=== PATIENT | male | born 1965 | race Two or more races ===

== ENCOUNTER 2017-01-05 19:30 | Observation (INO) | payer SELFPAY ==
[2017-01-05] MEDS ORDERED: Insulin Regular, Human 100 Units/ML 3 ML Vial SUBCUT STA (21:39)
[2017-01-05] MEDS ORDERED: Sodium Chloride 0.9% 1,000 ML IV ONE ×2 (21:39→23:32)
--- NOTE | 2017-01-05 22:24 | EDM.PDOC ---
ED HPI GENERAL MEDICAL PROBLEM - General Chief Complaint: Diabetic Complaint Stated Complaint: HIGH BLOOD SUGAR Time Seen by Provider: 01/05/17 20:48 Source of Information: Reports: Patient, RN Notes Reviewed History Limitations: Reports: No Limitations - History of Present Illness INITIAL COMMENTS - FREE TEXT/NARRATIVE: The patient states that he has had an unintentional 36 pound weight loss over the past 3 weeks. He states that he is working out and drinking protein shakes, but this weight loss is excessive. He reports having both polydipsia and polyuria. No dysuria. He states that he was diagnosed with diabetes in 2010, started on insulin, but worked out aggressively, and was off insulin within 3 weeks. He was kept on metformin until late 2014. He has not checked his blood sugars regularly since then, but states that with the weight loss, polydipsia, and polyuria, he purchased a blood glucose monitor about 2 weeks ago. He states that his blood sugar was about 334 yesterday morning, and about 534 this evening. The patient does not have a PCP. - Related Data Allergies Allergy/AdvReac Type Severity Reaction Status Date / Time Penicillins Allergy Airway Verified 01/05/17 19:49 Tightness Home Meds: Home Meds . [No Known Home Meds] 01/05/17 [History] Past Medical History Genitourinary History: Reports: Renal Calculus Endocrine/Metabolic History: Reports: Diabetes, Type II, Obesity/BMI 30+ - Past Surgical History HEENT Surgical History: Reports: Oral Surgery (2 wisdom teeth extracted) GI Surgical History: Reports: Hernia, Inguinal (left) Musculoskeletal Surgical History: Reports: Arthroscopic Knee (right), Shoulder Surgery (left biceps tendon repair) Social & Family History - Tobacco Use Smoking Status *Q: Never Smoker - Alcohol Use Alcohol Use History: No - Recreational Drug Use Recreational Drug Use: No - Living Situation & Occupation Living situation: Reports: (), Alone Occupation: Employed (Faculty Head/company tanker truck driver) ED ROS GENERAL - Review of Systems Review Of Systems: See Below Constitutional: Reports: No Symptoms HEENT: Reports: No Symptoms Respiratory: Reports: No Symptoms Cardiovascular: Reports: No Symptoms Endocrine: Reports: No Symptoms GI/Abdominal: Reports: No Symptoms : Reports: No Symptoms Musculoskeletal: Reports: No Symptoms Skin: Reports: No Symptoms Neurological: Reports: No Symptoms Psychiatric: Reports: No Symptoms Hematologic/Lymphatic: Reports: No Symptoms Immunologic: Reports: No Symptoms ED EXAM GENERAL NO PERIP PULSE - Physical Exam Exam: See Below Exam Limited By: No Limitations General Appearance: Alert, WD/WN, No Apparent Distress Eye Exam: Bilateral Eye: Normal Inspection Ears: Normal External Exam, Hearing Grossly Normal Nose: Normal Inspection, No Blood Throat/Mouth: Normal Inspection, Normal Lips, Normal Oropharynx, Normal Voice, No Airway Compromise Head: Atraumatic, Normocephalic Neck: Normal Inspection, Full Range of Motion Respiratory/Chest: No Respiratory Distress, Lungs Clear, Normal Breath Sounds, No Accessory Muscle Use Cardiovascular: Normal Peripheral Pulses, Regular Rate, Rhythm, No Gallop, No JVD, No Murmur, No Rub GI/Abdominal: Normal Bowel Sounds, Soft, Non-Tender, No Organomegaly, No Distention, No Abnormal Bruit, No Mass, Other (Obese) (Male) Exam: Deferred Rectal (Males) Exam: Deferred Back Exam: Normal Inspection, Full Range of Motion, NT Extremities: Normal Inspection, Normal Range of Motion, No Pedal Edema, Normal Capillary Refill Neurological: Alert, Oriented, Normal Cognition, No Motor/Sensory Deficits Psychiatric: Normal Affect Skin Exam: Warm, Dry, Intact, Normal Color, No Rash Course - Vital Signs Last Recorded V/S: Last Vital Signs Temp 35.8 C 01/05/17 19:47 Pulse 64 01/05/17 19:47 Resp BP 144/97 H 01/05/17 19:47 Pulse Ox 98 01/05/17 19:47 Orthostatic Blood Pressure [ 132/86 Standing] Orthostatic Blood Pressure [ 140/86 Sitting] Orthostatic Blood Pressure [ 129/81 Supine] - Orders/Labs/Meds Orders: Medication Orders Acetaminophen (Tylenol) 650 mg PO Q4H PRN PRN Reason: Pain (Mild 1-3)/fever Hydrocodone Bitart/Acetaminophen ([place] 325-5 Mg) 1 tab PO Q4H PRN PRN Reason: Pain (moderate 4-6) Albuterol/Ipratropium (Duoneb 3.0-0.5 Mg/3 Ml) 3 ml NEB Q4H PRN PRN Reason: Shortness Of Breath/wheezing Aspirin (Halfprin) 81 mg PO DAILY DARINEL Bisacodyl (Dulcolax) 5 mg PO DAILY PRN PRN Reason: Constipation Dextrose/Water (Dextrose 50% In Water) 50 ml IVPUSH ASDIRECTED PRN PRN Reason: Hypoglycemia Docusate Sodium (Colace) 100 mg PO BID PRN PRN Reason: Constipation Glipizide (Glucotrol Xl) 2.5 mg PO BIDMEALS [facility] Hydralazine HCl (Apresoline) 20 mg IVPUSH Q4H PRN PRN Reason: Hypertension Hydromorphone HCl (Dilaudid) 0.25 mg IVPUSH Q2H PRN PRN Reason: Pain (severe 7-10) Promethazine HCl 12.5 mg/ (Sodium Chloride) 50.5 mls @ 100 mls/hr IV Q6H PRN PRN Reason: Nausea/Vomiting Sodium Chloride (Normal Saline) 1,000 mls @ 125 mls/hr IV ASDIRECTED [facility] Last Admin: 01/06/17 02:04 Dose: 125 mls/hr Insulin Aspart (Novolog) 0 unit SUBCUT QIDACANDBED [facility] PRN Reason: Protocol Last Admin: 01/06/17 02:13 Dose: 6 units Lorazepam (Ativan) 2 mg IVPUSH Q4H PRN PRN Reason: Seizures Lorazepam (Ativan) 1 mg IV Q6H PRN PRN Reason: Anxiety Magnesium Sulfate (Pharmacy To Dose - Magnesium Replacement) 0 dose .XX ASDIRECTED PRN PRN Reason: RX TO WATCH MAG LEVELS Metformin HCl (Glucophage) 500 mg PO BIDMEALS [facility] Metoprolol Tartrate (Lopressor) 5 mg IVPUSH Q4H PRN PRN Reason: Tachycardia Ondansetron HCl (Zofran) 4 mg IV Q6H PRN PRN Reason: Nausea/Vomiting Polyethylene Glycol (Miralax) 17 gm PO DAILY PRN PRN Reason: Constipation Potassium Chloride (Pharmacy To Dose - Potassium Replacement) 0 dose .XX ASDIRECTED PRN PRN Reason: RX TO WATCH K LEVELS Senna/Docusate Sodium (Senna Plus) 1 tab PO BID PRN PRN Reason: Constipation Temazepam (Restoril) 15 mg PO BEDTIME PRN PRN Reason: Sleep Last Admin: 01/06/17 02:03 Dose: 15 mg Labs: Laboratory Tests 01/05/17 01/05/17 01/05/17 Range/Units 20:15 20:15 20:40 WBC 5.63 (4.23-9.07) K/mm3 RBC 4.84 (4.63-6.08) M/mm3 Hgb 14.0 (13.7-17.5) gm/L Hct 40.4 (40.1-51.0) % MCV 83.5 (79.0-92.2) fl MCH 28.9 (25.7-32.2) pg MCHC 34.7 (32.2-35.5) g/dl RDW Std Deviation 37.0 (35.1-43.9) fL Plt Count 163 (163-337) K/mm3 MPV 9.9 (9.4-12.3) fl Neut % (Auto) 52.0 (34.0-67.9) % Lymph % (Auto) 35.7 (21.8-53.1) % [place] % (Auto) 9.2 (5.3-12.2) % Eos % (Auto) 2.7 (0.8-7.0) Baso % (Auto) 0.4 (0.1-1.2) % Neut # (Auto) 2.93 (1.78-5.38) K/mm3 Lymph # (Auto) 2.01 (1.32-3.57) K/mm3 [place] # (Auto) 0.52 (0.30-0.82) K/mm3 Eos # (Auto) 0.15 (0.04-0.54) K/mm3 Baso # (Auto) 0.02 (0.01-0.08) K/mm3 Neutrophils % (Manual) (40-60) % Band Neutrophils % (0-10) % Lymphocytes % (Manual) (20-40) % Atypical Lymphs % % Monocytes % (Manual) (2-10) % Eosinophils % (Manual) (0.8-7.0) % Basophils % (Manual) (0.2-1.2) Platelet Estimate RBC Morph Comment Sodium 131 L (136-145) mEq/L Potassium 4.6 (3.5-5.1) mEq/L Chloride 97 L (98-107) mEq/L Carbon Dioxide 25 (21-32) mEq/L Anion Gap 13.6 (5-15) BUN 31 H (7-18) mg/dL Creatinine 1.4 H (0.7-1.3) mg/dL Est Cr Clr Drug Dosing 65.18 mL/min Estimated GFR (MDRD) 54 (>60) mL/min BUN/Creatinine Ratio 22.1 H (14-18) Glucose 592 H* (74-106) mg/dL Lactic Acid (0.4-2.0) mmol/L Calcium 8.9 (8.5-10.1) mg/dL Magnesium (1.8-2.4) mg/dl Total Bilirubin 0.5 (0.2-1.0) mg/dL AST 16 (15-37) U/L ALT 36 (16-63) U/L Alkaline Phosphatase 97 (46-116) U/L Troponin I (0.00-0.056) ng/mL Total Protein 7.1 (6.4-8.2) g/dl Albumin 3.4 (3.4-5.0) g/dl Globulin 3.7 gm/dL Albumin/Globulin Ratio 0.9 L (1-2) Urine Color Light yellow (Yellow) Urine Appearance Clear (Clear) Urine pH 6.0 (5.0-8.0) Ur Specific [place] 1.015 (1.005-1.030) Urine Protein Negative (Negative) Urine Glucose (UA) 2+ H (Negative) Urine Ketones Negative (Negative) Urine Occult Blood 1+ H (Negative) Urine Nitrite Negative (Negative) Urine Bilirubin Negative (Negative) Urine Urobilinogen 0.2 (0.2-1.0) Ur Leukocyte Esterase Negative (Negative) Urine RBC 0-5 (0-5) /hpf Urine WBC Not seen (0-5) /hpf Ur Epithelial Cells 0-5 (0-5) /hpf Urine Bacteria Not seen (FEW) /hpf Urine Mucus Not seen (FEW) /hpf Ketones (0.0-0.3) mM 01/05/17 01/05/17 01/05/17 Range/Units 22:05 22:05 22:05 WBC 6.21 (4.23-9.07) K/mm3 RBC 4.86 (4.63-6.08) M/mm3 Hgb 14.2 (13.7-17.5) gm/L Hct 40.4 (40.1-51.0) % MCV 83.1 (79.0-92.2) fl MCH 29.2 (25.7-32.2) pg MCHC 35.1 (32.2-35.5) g/dl RDW Std Deviation 36.7 (35.1-43.9) fL Plt Count 162 L (163-337) K/mm3 MPV 9.9 (9.4-12.3) fl Neut % (Auto) (34.0-67.9) % Lymph % (Auto) (21.8-53.1) % [place] % (Auto) (5.3-12.2) % Eos % (Auto) (0.8-7.0) Baso % (Auto) (0.1-1.2) % Neut # (Auto) (1.78-5.38) K/mm3 Lymph # (Auto) (1.32-3.57) K/mm3 [place] # (Auto) (0.30-0.82) K/mm3 Eos # (Auto) (0.04-0.54) K/mm3 Baso # (Auto) (0.01-0.08) K/mm3 Neutrophils % (Manual) 55 (40-60) % Band Neutrophils % 0 (0-10) % Lymphocytes % (Manual) 35 (20-40) % Atypical Lymphs % 0 % Monocytes % (Manual) 9 (2-10) % Eosinophils % (Manual) 1 (0.8-7.0) % Basophils % (Manual) 0 L (0.2-1.2) Platelet Estimate Adequate RBC Morph Comment Normal Sodium (136-145) mEq/L Potassium (3.5-5.1) mEq/L Chloride (98-107) mEq/L Carbon Dioxide (21-32) mEq/L Anion Gap (5-15) BUN (7-18) mg/dL Creatinine (0.7-1.3) mg/dL Est Cr Clr Drug Dosing mL/min Estimated GFR (MDRD) (>60) mL/min BUN/Creatinine Ratio (14-18) Glucose (74-106) mg/dL Lactic Acid 1.9 (0.4-2.0) mmol/L Calcium (8.5-10.1) mg/dL Magnesium 1.7 L (1.8-2.4) mg/dl Total Bilirubin (0.2-1.0) mg/dL AST (15-37) U/L ALT (16-63) U/L Alkaline Phosphatase (46-116) U/L Troponin I < 0.017 (0.00-0.056) ng/mL Total Protein (6.4-8.2) g/dl Albumin (3.4-5.0) g/dl Globulin gm/dL Albumin/Globulin Ratio (1-2) Urine Color (Yellow) Urine Appearance (Clear) Urine pH (5.0-8.0) Ur Specific [place] (1.005-1.030) Urine Protein (Negative) Urine Glucose (UA) (Negative) Urine Ketones (Negative) Urine Occult Blood (Negative) Urine Nitrite (Negative) Urine Bilirubin (Negative) Urine Urobilinogen (0.2-1.0) Ur Leukocyte Esterase (Negative) Urine RBC (0-5) /hpf Urine WBC (0-5) /hpf Ur Epithelial Cells (0-5) /hpf Urine Bacteria (FEW) /hpf Urine Mucus (FEW) /hpf Ketones (0.0-0.3) mM 01/05/17 Range/Units 22:05 WBC (4.23-9.07) K/mm3 RBC (4.63-6.08) M/mm3 Hgb (13.7-17.5) gm/L Hct (40.1-51.0) % MCV (79.0-92.2) fl MCH (25.7-32.2) pg MCHC (32.2-35.5) g/dl RDW Std Deviation (35.1-43.9) fL Plt Count (163-337) K/mm3 MPV (9.4-12.3) fl Neut % (Auto) (34.0-67.9) % Lymph % (Auto) (21.8-53.1) % [place] % (Auto) (5.3-12.2) % Eos % (Auto) (0.8-7.0) Baso % (Auto) (0.1-1.2) % Neut # (Auto) (1.78-5.38) K/mm3 Lymph # (Auto) (1.32-3.57) K/mm3 [place] # (Auto) (0.30-0.82) K/mm3 Eos # (Auto) (0.04-0.54) K/mm3 Baso # (Auto) (0.01-0.08) K/mm3 Neutrophils % (Manual) (40-60) % Band Neutrophils % (0-10) % Lymphocytes % (Manual) (20-40) % Atypical Lymphs % % Monocytes % (Manual) (2-10) % Eosinophils % (Manual) (0.8-7.0) % Basophils % (Manual) (0.2-1.2) Platelet Estimate RBC Morph Comment Sodium (136-145) mEq/L Potassium (3.5-5.1) mEq/L Chloride (98-107) mEq/L Carbon Dioxide (21-32) mEq/L Anion Gap (5-15) BUN (7-18) mg/dL Creatinine (0.7-1.3) mg/dL Est Cr Clr Drug Dosing mL/min Estimated GFR (MDRD) (>60) mL/min BUN/Creatinine Ratio (14-18) Glucose (74-106) mg/dL Lactic Acid (0.4-2.0) mmol/L Calcium (8.5-10.1) mg/dL Magnesium (1.8-2.4) mg/dl Total Bilirubin (0.2-1.0) mg/dL AST (15-37) U/L ALT (16-63) U/L Alkaline Phosphatase (46-116) U/L Troponin I (0.00-0.056) ng/mL Total Protein (6.4-8.2) g/dl Albumin (3.4-5.0) g/dl Globulin gm/dL Albumin/Globulin Ratio (1-2) Urine Color (Yellow) Urine Appearance (Clear) Urine pH (5.0-8.0) Ur Specific [place] (1.005-1.030) Urine Protein (Negative) Urine Glucose (UA) (Negative) Urine Ketones (Negative) Urine Occult Blood (Negative) Urine Nitrite (Negative) Urine Bilirubin (Negative) Urine Urobilinogen (0.2-1.0) Ur Leukocyte Esterase (Negative) Urine RBC (0-5) /hpf Urine WBC (0-5) /hpf Ur Epithelial Cells (0-5) /hpf Urine Bacteria (FEW) /hpf Urine Mucus (FEW) /hpf Ketones 0.18 (0.0-0.3) mM Meds: Medications Generic Name Dose Route Start Last Admin Trade Name Freq PRN Reason Stop Dose Admin Acetaminophen 650 mg 01/06/17 01:29 Tylenol PO Q4H PRN Pain (Mild 1-3)/fever Hydrocodone Bitart/Acetaminophen 1 tab 01/06/17 01:29 [place]yer 325-5 Mg PO Q4H PRN Pain (moderate 4-6) Albuterol/Ipratropium 3 ml 01/06/17 01:29 Duoneb 3.0-0.5 Mg/3 Ml NEB Q4H PRN Shortness Of Breath/wheezing Aspirin 81 mg 01/06/17 09:00 Halfprin PO DAILY DARINEL Bisacodyl 5 mg 01/06/17 01:29 Dulcolax PO DAILY PRN Constipation Dextrose/Water 50 ml 01/06/17 01:35 Dextrose 50% In Water IVPUSH ASDIRECTED PRN Hypoglycemia Docusate Sodium 100 mg 01/06/17 01:29 Colace PO BID PRN Constipation Glipizide 2.5 mg 01/06/17 07:00 Glucotrol Xl PO BIDMEALS [facility] Hydralazine HCl 20 mg 01/06/17 01:28 Apresoline IVPUSH Q4H PRN Hypertension Hydromorphone HCl 0.25 mg 01/06/17 01:29 Dilaudid IVPUSH Q2H PRN Pain (severe 7-10) Promethazine HCl 12.5 mg/ 50.5 mls @ 100 mls/hr 01/06/17 01:29 Sodium Chloride IV Q6H PRN Nausea/Vomiting Sodium Chloride 1,000 mls @ 125 mls/hr 01/06/17 01:30 01/06/17 02:04 Normal Saline IV 125 mls/hr ASDIRECTED [facility] Administration Insulin Aspart 0 unit 01/06/17 01:45 01/06/17 02:13 Novolog SUBCUT 6 units QIDACANDBED [facility] Administration Protocol Lorazepam 2 mg 01/06/17 01:28 Ativan IVPUSH Q4H PRN Seizures Lorazepam 1 mg 01/06/17 01:29 Ativan IV Q6H PRN Anxiety Magnesium Sulfate 0 dose 01/06/17 01:45 Pharmacy To Dose - Magnesium Replacement .XX ASDIRECTED PRN RX TO WATCH MAG LEVELS Metformin HCl 500 mg 01/06/17 07:00 Glucophage PO BIDMEALS DARINEL Metoprolol Tartrate 5 mg 01/06/17 01:28 Lopressor IVPUSH Q4H PRN Tachycardia Ondansetron HCl 4 mg 01/06/17 01:29 Zofran IV Q6H PRN Nausea/Vomiting Polyethylene Glycol 17 gm 01/06/17 01:29 Miralax PO DAILY PRN Constipation Potassium Chloride 0 dose 01/06/17 01:45 Pharmacy To Dose - Potassium Replacement .XX ASDIRECTED PRN RX TO WATCH K LEVELS Senna/Docusate Sodium 1 tab 01/06/17 01:29 Senna Plus PO BID PRN Constipation Temazepam 15 mg 01/06/17 01:29 01/06/17 02:03 Restoril PO 15 mg BEDTIME PRN Administration Sleep Discontinued Medications Generic Name Dose Route Start Last Admin Trade Name Freq PRN Reason Stop Dose Admin Sodium Chloride 1,000 mls @ 999 mls/hr 01/05/17 21:39 01/05/17 21:51 Normal Saline IV 01/05/17 22:39 999 mls/hr ONETIME ONE Administration Insulin Human Regular 100 unit 100 mls @ 0 mls/hr 01/05/17 23:30 / Sodium Chloride IV TITRATE DARINEL Protocol 0.1 UNITS/KG/HR Sodium Chloride 1,000 mls @ 999 mls/hr 01/05/17 23:32 01/06/17 00:08 Normal Saline IV 01/06/17 00:32 999 mls/hr ONETIME ONE Administration Magnesium Sulfate 50 mls @ 50 mls/hr 01/06/17 02:00 01/06/17 02:04 Magnesium Sulfate 2 Gm In Water 50 Ml IV 01/06/17 02:59 50 mls/hr ONETIME ONE Administration Insulin Human Regular 10 unit 01/05/17 21:39 01/05/17 21:53 Humulin R SUBCUT 01/05/17 21:40 10 units ONETIME STA Administration Protocol Metformin HCl 500 mg 01/06/17 01:34 01/06/17 02:03 Glucophage PO 01/06/17 01:35 500 mg ONETIME ONE Administration - Re-Assessments/Exams Free Text/Narrative Re-Assessment/Exam: 01/05/17 22:23 The patient is not orthostatic. 01/05/17 22:24 Notified by the respiratory therapist that the patient did not tolerate an attempt at acquiring an ABG. 01/05/17 22:53 Two-view chest radiograph appears to be grossly normal. Cardiac silhouette is within normal limits. No pulmonary vascular congestion. No pleural effusions. No focal infiltrate. No pneumothorax. Formal read per the Radiologist pending. 01/05/17 23:26 Repeat Accu-Chek is still >400. I have ordered an insulin drip. Test results discussed with the patient. Today's workup demonstrates significant hyperglycemia, although he is not in DKA. I'm recommending admission to the hospital to rehydrate and gradually correct his hyperglycemia. The patient is agreeable. 01/05/17 23:[address] Ruiz at 23:26. He accepts the patient for admission, however, he does not want the patient on an insulin drip. Departure - Departure Time of Disposition: 23:29 Disposition: Refer to Observation Condition: Fair Clinical Impression: Uncontrolled diabetes mellitus with hyperglycemia - Discharge Information
--- NOTE | 2017-01-06 01:13 | PCM.HP ---
H&P History of Present Illness - General Date of Service: 01/06/17 Admit Problem/Dx: Admission Diagnosis/Problem Admission Diagnosis/Problem Hyperglycemia without ketosis Source of Information: Patient, Provider, RN Notes Reviewed History Limitations: Reports: No Limitations - History of Present Illness Initial Comments - Free Text/Narative: This is a 51 year old male with past medical history of type 2 diabetes who comes in with complaints of elevated sugar with a glucose level of 592. Patient carried a history of type 2 diabetes. He was diagnosed in January 2011. He has been on insulin and metformin for anti-hyperglycemic in the past. However he decided to control his diabetes with diet only. Unfortunately, he felt his diabetes started to come back about 2 years ago. He denies any other past medical history. He does not know his last A1c. He does not check his sugar routinely. He states he is pretty active physically. Patient does not smoke. He denies alcoholic or illicit drug use. Patient has no primary care doctor. He just moved here from [place] for work. His initial workup in emergency department shows a CBC remarkable for platelet of 162. His chemistry is remarkable for sodium of 131, chloride of 97, BUN of 31 , creatinine of 1.4, glucose of 592, and magnesium 1.7. His UA is positive for glucose and urine occult blood +1. His ketones level is 0.18. Patient received initial insulin treatment in the emergency department before he was sent to the floor for further treatment. He is being admitted for hyperglycemic control associated with type 2 diabetes. His CODE STATUS is full. - Related Data Allergies/Adverse Reactions: Allergies Allergy/AdvReac Type Severity Reaction Status Date / Time Penicillins Allergy Airway Verified 01/05/17 19:49 Tightness Home Medications: Home Meds Aspirin [Halfprin] 81 mg PO DAILY #30 tab.ec 01/06/17 [Rx] Hydrocortisone [Hydrocortisone 1% Crm] 1.5 gm TOP ASDIRECTED PRN #1 packet 01/06 [Rx] Simvastatin [Zocor] 10 mg PO BEDTIME #30 tablet 01/06/17 [Rx] glipiZIDE [Glipizide ER] 5 mg PO BID #60 tab.er.24 01/06/17 [Rx] metFORMIN [Glucophage] 500 mg PO ASDIRECTED #90 tablet 01/06/17 [Rx] Past Medical History Endocrine/Metabolic History: Reports: Diabetes, Type II Social & Family History - Tobacco Use Smoking Status *Q: Never Smoker - Recreational Drug Use Recreational Drug Use: No H&P Review of Systems - Review of Systems: Review Of Systems: See Below General: Reports: No Symptoms, Fatigue, Other (Thirsty). Denies: Chills, Weakness HEENT: Reports: No Symptoms Pulmonary: Denies: Shortness of Breath Cardiovascular: Denies: Chest Pain, Palpitations, Dyspnea on Exertion, Lightheadedness Gastrointestinal: Denies: Abdominal Pain, Nausea, Vomiting Genitourinary: Reports: Frequency, Urgency Musculoskeletal: Reports: No Symptoms Skin: Denies: Cyanosis, Jaundice, Pruritis, Rash, Erythema, Wound Psychiatric: Denies: Confusion, Depression, Mood Lability, Anxiety, Agitation, Cravings, Hallucinations, Suicidal Ideation, Homicidal Ideation Neurological: Denies: Confusion, Dizziness, Headache, Pre-Existing Deficit, Seizure, Syncope, Trouble Speaking, Difficulty Walking, Weakness, Gait Disturbance Hematologic/Lymphatic: Reports: No Symptoms Immunologic: Reports: No Symptoms Exam - Exam Exam: See Below - Vital Signs Vital Signs: Last Vital Signs Temp 35.8 C 01/05/17 19:47 Pulse 64 01/05/17 19:47 Resp BP 144/97 H 01/05/17 19:47 Pulse Ox 98 01/05/17 19:47 Weight: 104.326 kg - Exam General: Alert, Oriented, Cooperative, Mild Distress, Other (Obese) HEENT: Conjunctiva Clear, EACs Clear, Hearing Intact, Mucosa Moist & [place], Nares Patent, Normal Nasal Septum, Posterior Pharynx Clear, Pupils Equal, Pupils Reactive Neck: Supple, Trachea Midline, +2 Carotid Pulse wo Bruit, Full Range of Motion Lungs: Clear to Auscultation, Normal Respiratory Effort Cardiovascular: Irregular Rhythm, Bradycardia GI/Abdominal Exam: Normal Bowel Sounds, Soft, Non-Tender, No Organomegaly, No Distention, No Abnormal Bruit, No Mass, Other (Obese) (Male) Exam: Deferred Rectal (Males) Exam: Deferred Back Exam: Normal Inspection, Decreased Range of Motion Extremities: Normal Inspection, Normal Range of Motion, Non-Tender, No Pedal Edema, Normal Capillary Refill Peripheral Pulses: 2+: Posterior Tibial (L), Posterior Tibial (R), Dorsalis Pedis (L), Dorsalis Pedis (R) Skin: Warm, Dry, Intact Neuro Extensive - Mental Status: Oriented x3, Normal Cognition, Memory Intact Neuro Extensive - Motor, Sensory, Reflexes: CN II-XII Intact, Normal Gait Psychiatric: Alert, Normal Affect, Normal Mood - Patient Data Result Diagrams: 01/06/17 06:47 01/06/17 06:47 *Q Meaningful Use (ADM) - VTE *Q VTE Criteria *Q: - Stroke *Q Stroke Criteria *Q: - AMI *Q AMI Criteria *Q: Problem List Initiated/Reviewed/Updated: Yes Orders Last 24hrs: Active Orders 24 hr Category Date Time Status Patient Status [ADT] Routine ADT 01/06/17 01:01 Active Assessment/Plan Comment:: Assessment/Plan: Acute: DM2 With Hyperglycemia - Diagnosed with DM2 in 2000 - Was on insulin and metformin in the past - Recently has been diet controlled - He got the his Diabetes back 2 years ago - Does not check his sugar and not on any diabetic medications Hypomagnesemia - 2/2 Inadequate Intake - Received Mg supplement in ED - Will -recheck level in AM Obesity with BMI 33 - Dietary consult for weight management Plan: Admit to OBS Patient did not need to come in for admission IVF for maintenance A1C, Lipid Panel, Urine Microalbumin, Thyroid Panel in AM Routine AM Labs Dietary consult and Diabetic Education SW/CM for d/c planning Code status: 1
[2017-01-06] MEDS ORDERED: hydrALAZINE 20 MG/ML SDV IVPUSH PRN (01:28)
[2017-01-06] MEDS ORDERED: LORazepam 2 MG/ML MDV IVPUSH PRN (01:28)
[2017-01-06] MEDS ORDERED: Metoprolol Tartrate 5 MG/5 ML SDV IVPUSH PRN (01:28)
[2017-01-06] MEDS ORDERED: Docusate Sodium 100 MG Cap PO PRN (01:29)
[2017-01-06] MEDS ORDERED: Temazepam 15 MG Cap PO PRN (01:29)
[2017-01-06] MEDS ORDERED: Bisacodyl 5 MG Tab PO PRN (01:29)
[2017-01-06] MEDS ORDERED: Ondansetron 4 MG/2 ML SDV IV PRN (01:29)
[2017-01-06] MEDS ORDERED: HYDROmorphone 0.5 MG/0.5 ML Syringe IVPUSH PRN (01:29)
[2017-01-06] MEDS ORDERED: Acetaminophen 325 MG Tab PO PRN (01:29)
[2017-01-06] MEDS ORDERED: Albuterol/Ipratropium 3.0-0.5 MG/3 ML Neb Soln NEB PRN (01:29)
[2017-01-06] MEDS ORDERED: LORazepam 2 MG/ML MDV IV PRN (01:29)
[2017-01-06] MEDS ORDERED: Promethazine 12.5 MG in Sodium Chloride 0.9% 50 ML IV PRN (01:29)
[2017-01-06] MEDS ORDERED: Polyethylene Glycol 3350 Powder 17 GM Packet PO PRN (01:29)
[2017-01-06] MEDS ORDERED: Acetaminophen/HYDROcodone 325-5 MG Tab PO PRN (01:29)
[2017-01-06] MEDS ORDERED: Sodium Chloride 0.9% 1,000 ML IV SCH (01:30)
[2017-01-06] MEDS ORDERED: metFORMIN 500 MG Tab PO ONE (01:34)
[2017-01-06] MEDS ORDERED: 50% Dextrose in Water 50 ML Syringe IVPUSH PRN (01:35)
[2017-01-06] MEDS ORDERED: Magnesium Sulfate/Water 50 ML IV ONE (02:00)
[2017-01-06] MEDS: Insulin Aspart 100 Units/ML 3 ML Pen SUBCUT SCH ×3 (02:13→12:03)
[2017-01-06] MEDS ORDERED: metFORMIN 500 MG Tab PO SCH (07:00)
[2017-01-06] MEDS ORDERED: glipiZIDE 2.5 MG Tab.ER PO SCH (07:00)
--- NOTE | 2017-01-06 07:03 | CR ---
Chest: Two views of the chest were obtained. Comparison: No previous study. Heart size and mediastinum are normal. Lungs are clear. Bony structures are unremarkable for the patient's age. Impression: 1. Nothing acute is identified on two-view chest x-ray. Diagnostic code #1
[2017-01-06] MEDS ORDERED: Aspirin 81 MG Tab.EC PO SCH (09:00)
[2017-01-06 09:42] VITALS: BP 108/80
--- NOTE | 2017-01-06 15:09 | PCM.DCSUM1 ---
Discharge Summary - Hospital Course Brief History: This is a 51 year old male with past medical history of type 2 diabetes who comes in with complaints of elevated sugar level with a glucose level of 592. He was admitted for medical management of hyperglycemia. - Discharge Data Discharge Date: 01/06/17 Discharge Disposition: Home, Self-Care 01 Condition: Good - Discharge Diagnosis/Problem(s) (1) Uncontrolled diabetes mellitus with hyperglycemia SNOMED Code(s): 48920753, [id number], [id number], 071538795 ICD Code: E11.65 - TYPE 2 DIABETES MELLITUS WITH HYPERGLYCEMIA Status: Resolved Current Visit: Yes Qualifiers: Diabetes mellitus type: type 2 Diabetes mellitus watermaster insulin use: without watermaster use Qualified Code(s): E11.65 - Type 2 diabetes mellitus with hyperglycemia (2) Dyslipidemia SNOMED Code(s): 713009518 ICD Code: E78.5 - HYPERLIPIDEMIA, UNSPECIFIED Status: Acute Current Visit : Yes (3) Irritation of penis SNOMED Code(s): 085963062 ICD Code: N48.89 - OTHER SPECIFIED DISORDERS OF PENIS Status: Acute Current Visit: Yes (4) Obesity (BMI 30.0-34.9) SNOMED Code(s): 393998805 ICD Code: E66.9 - OBESITY, UNSPECIFIED Status: Chronic Current Visit: Yes - Patient Summary/Data Operative Procedure(s) Performed: None Complications: None Consults: Consultations 01/06/17 01:29 Consult to Case Management [CONS] Routine Consult to Diabetic Nurse Specialist [CONS] Routine Consult to Audio Visual Aide [CONS] Routine Consult to Buyer Assistant [CONS] Routine Consult to Spiritual Care [CONS] Routine Recommended Follow-up Testing/Procedures: PCP after discharge Planned Operative Procedure(s) after DC: None Hospital Course: Patient was primarily admitted for medical management of hyperglycemia associated with poorly controlled type 2 diabetes. Patient carried a history of long standing DM2. As noted in the history and physical, he was treated with insulin and metformin in the past. However, he chose to control it with diet and physical activity only. Unfortunately, his regimen did not work very well for his diabetes. He presented to the emergency department with a sugar level of 592 with an A1c of 15.30. Patient responded initial insulin treatment in the emergency department. However he was switched to combination of metformin and glipizide for oral anti- hypoglycemic regimen. From there, his glucose improved in the 200 range from 592 on admission. Given that his A1C was > 12, we offered insulin for more aggressive treatment but he was self-pay and could not afford expensive medications. His hospital course was uncomplicated. His lipid profile was somewhat abnormal with low level of HDL but his thyroid panel was within normal limits. During this admission, diabetic nurse and dietary were consulted for education and weight management respectively. Patient is now ready for discharge. He will go home with low-dose aspirin and simvastatin for cardio-protection. He will be discharged with combination glipizide 5 mg by mouth twice a day and metformin 500 mg by mouth twice a day for 7 days and then 2 tabs by mouth twice a day thereafter. He was advised to perform lifestyle modification to include proper diet, regular exercise, and weight loss. He is to check his blood glucose twice a day for 1-2 weeks and or until he sees his local family care doctor here in town. On the day of discharge, we stressed the importance of medical and dietary compliance. Patient was further advised to come back or seek immediate care should his symptoms persist or get worse. The patient expressed understanding and in agreement with the plans as discussed above. All questions were answered. - Patient Instructions Diet: Heart Healthy Diet, Diabetic Diet Activity: As Tolerated Driving: May Drive Today Showering/Bathing: May Shower Notify Provider of: Fever, Increased Pain, Nausea and/or Vomiting Other/Special Instructions: - Please take all medications as directed. - Check you blood sugar twice a day for 1-2 week. Show log to your family doctor on your follow up appointment. - Come back or seek immediately if your symptoms persist or get worse. - Please make sure you keep or make a follow up appointment for your diabetes - Discharge Plan Prescriptions/Med Rec: Aspirin [Halfprin] 81 mg PO DAILY #30 tab.ec glipiZIDE [Glipizide ER] 5 mg PO BID #60 tab.er.24 Hydrocortisone [Hydrocortisone 1% Crm] 1.5 gm TOP ASDIRECTED PRN #1 packet PRN Reason: Other metFORMIN [Glucophage] 500 mg PO ASDIRECTED #90 tablet Simvastatin [Zocor] 10 mg PO BEDTIME #30 tablet Home Medications: Home Meds Aspirin [Halfprin] 81 mg PO DAILY #30 tab.ec 01/06/17 [Rx] Hydrocortisone [Hydrocortisone 1% Crm] 1.5 gm TOP ASDIRECTED PRN #1 packet 01/06 [Rx] Simvastatin [Zocor] 10 mg PO BEDTIME #30 tablet 01/06/17 [Rx] glipiZIDE [Glipizide ER] 5 mg PO BID #60 tab.er.24 01/06/17 [Rx] metFORMIN [Glucophage] 500 mg PO ASDIRECTED #90 tablet 01/06/17 [Rx] Patient Handouts: Diabetes and Foot Care, Tips for Eating Away From Home If You Have Diabetes, Form - Daily Diabetes Record, Diabetes and Sick Day Management, Hyperglycemia, [id number], Basic Carbohydrate Counting for Diabetes Mellitus, Type 2 Diabetes Mellitus, Adult, [id number] - Discharge Summary/Plan Comment DC Time >30 min.: Yes (45 mins) Discharge Summary/Plan Comment: Discharge to Home - General Info Date of Service: 01/06/17 Admission Dx/Problem (Free Text: Admission Diagnosis/Problem Admission Diagnosis/Problem Hyperglycemia without ketosis Subjective Update: Follow Up Functional Status: Reports: Pain Controlled, Tolerating Diet, Ambulating, Urinating - Review of Systems General: Denies: Fever, Weakness, Fatigue, Malaise, Chills HEENT: Reports: No Symptoms Pulmonary: Denies: Shortness of Breath Cardiovascular: Denies: Chest Pain, Palpitations, Dyspnea on Exertion, Orthopnea , Edema, Lightheadedness Gastrointestinal: Denies: Abdominal Pain, Decreased Appetite, Flatus, Hematochezia, Nausea, Vomiting Genitourinary: Reports: No Symptoms, Other (Penile rash) Musculoskeletal: Reports: No Symptoms Skin: Denies: Cyanosis, Jaundice, Mottled, Pallor, Diaphoresis, Pruritis, Rash Neurological: Denies: Confusion, Dizziness, Pre-Existing Deficit, Seizure, Weakness, Gait Disturbance Psychiatric: Denies: Confusion, Depression, Mood Lability, Anxiety, Agitation, Cravings, Hallucinations, Suicidal Ideation, Homicidal Ideation Systems Review Comment: No overnight or acute issues. His feels way better. His blood glucose is now in the 200 range. He reports penile rash after touching it with his unclean hands. - Patient Data Vitals - Most Recent: Last Vital Signs Temp 36.2 C 01/06/17 01:22 Pulse 65 01/06/17 09:33 Resp 12 01/06/17 09:33 BP 108/80 01/06/17 09:33 Pulse Ox 94 L 01/06/17 09:33 Weight - Most Recent: 105.233 kg I&O - Last 24 hours: Intake & Output 01/06/17 01/06/17 01/06/17 06:59 14:59 22:59 Intake Total 240 Balance 240 Lab Results - Last 24 hrs: Laboratory Results - last 24 hr 01/06/17 01/06/17 01/06/17 Range/Units 01:40 06:47 06:47 WBC 5.70 (4.23-9.07) K/mm3 RBC 4.68 (4.63-6.08) M/mm3 Hgb 13.8 (13.7-17.5) gm/L Hct 38.8 L (40.1-51.0) % MCV 82.9 (79.0-92.2) fl MCH 29.5 (25.7-32.2) pg MCHC 35.6 H (32.2-35.5) g/dl RDW Std Deviation 36.6 (35.1-43.9) fL Plt Count 153 L (163-337) K/mm3 MPV 9.7 (9.4-12.3) fl Neut % (Auto) 52.0 (34.0-67.9) % Lymph % (Auto) 34.0 (21.8-53.1) % [place] % (Auto) 10.4 (5.3-12.2) % Eos % (Auto) 2.8 (0.8-7.0) Baso % (Auto) 0.4 (0.1-1.2) % Neut # (Auto) 2.97 (1.78-5.38) K/mm3 Lymph # (Auto) 1.94 (1.32-3.57) K/mm3 [place] # (Auto) 0.59 (0.30-0.82) K/mm3 Eos # (Auto) 0.16 (0.04-0.54) K/mm3 Baso # (Auto) 0.02 (0.01-0.08) K/mm3 Sodium 139 (136-145) mEq/L Potassium 3.7 (3.5-5.1) mEq/L Chloride 108 H (98-107) mEq/L Carbon Dioxide 22 (21-32) mEq/L Anion Gap 12.7 (5-15) BUN 17 (7-18) mg/dL Creatinine 0.9 (0.7-1.3) mg/dL Est Cr Clr Drug Dosing 101.39 mL/min Estimated GFR (MDRD) > 60 (>60) mL/min BUN/Creatinine Ratio 18.9 H (14-18) Glucose 255 H (74-106) mg/dL POC Glucose 297 H (70-105) mg/dL Hemoglobin A1c (4.50-6.20) % Calcium 8.2 L (8.5-10.1) mg/dL Magnesium 2.2 (1.8-2.4) mg/dl Triglycerides 265 H (<150) mg/dL Cholesterol 187 (<200) mg/dL LDL Cholesterol Direct 99 (<100) mg/dL HDL Cholesterol 34.0 L (40-59) mg/dL Free T4 1.04 (0.76-1.46) ng/dL TSH 3rd Generation 3.170 (0.358-3.74) uIU/mL Ur Random Creatinine (30.0-125.0) mg/dL Ur Random Microalbumin (1.3-20.0) mg/L Microalb/Creat Ratio (0-30) mg/g 01/06/17 01/06/17 01/06/17 Range/Units 06:47 08:00 11:04 WBC (4.23-9.07) K/mm3 RBC (4.63-6.08) M/mm3 Hgb (13.7-17.5) gm/L Hct (40.1-51.0) % MCV (79.0-92.2) fl MCH (25.7-32.2) pg MCHC (32.2-35.5) g/dl RDW Std Deviation (35.1-43.9) fL Plt Count (163-337) K/mm3 MPV (9.4-12.3) fl Neut % (Auto) (34.0-67.9) % Lymph % (Auto) (21.8-53.1) % [place] % (Auto) (5.3-12.2) % Eos % (Auto) (0.8-7.0) Baso % (Auto) (0.1-1.2) % Neut # (Auto) (1.78-5.38) K/mm3 Lymph # (Auto) (1.32-3.57) K/mm3 [place] # (Auto) (0.30-0.82) K/mm3 Eos # (Auto) (0.04-0.54) K/mm3 Baso # (Auto) (0.01-0.08) K/mm3 Sodium (136-145) mEq/L Potassium (3.5-5.1) mEq/L Chloride (98-107) mEq/L Carbon Dioxide (21-32) mEq/L Anion Gap (5-15) BUN (7-18) mg/dL Creatinine (0.7-1.3) mg/dL Est Cr Clr Drug Dosing mL/min Estimated GFR (MDRD) (>60) mL/min BUN/Creatinine Ratio (14-18) Glucose (74-106) mg/dL POC Glucose 231 H (70-105) mg/dL Hemoglobin A1c 15.30 H (4.50-6.20) % Calcium (8.5-10.1) mg/dL Magnesium (1.8-2.4) mg/dl Triglycerides (<150) mg/dL Cholesterol (<200) mg/dL LDL Cholesterol Direct (<100) mg/dL HDL Cholesterol (40-59) mg/dL Free T4 (0.76-1.46) ng/dL TSH 3rd Generation (0.358-3.74) uIU/mL Ur Random Creatinine 45.2 (30.0-125.0) mg/dL Ur Random Microalbumin 3.5 (1.3-20.0) mg/L Microalb/Creat Ratio 7.7 (0-30) mg/g Med Orders - Current: Current Medications Acetaminophen (Tylenol) 650 mg PO Q4H PRN PRN Reason: Pain (Mild 1-3)/fever Hydrocodone Bitart/Acetaminophen ([place] 325-5 Mg) 1 tab PO Q4H PRN PRN Reason: Pain (moderate 4-6) Albuterol/Ipratropium (Duoneb 3.0-0.5 Mg/3 Ml) 3 ml NEB Q4H PRN PRN Reason: Shortness Of Breath/wheezing Aspirin (Halfprin) 81 mg PO DAILY DARINEL Last Admin: 01/06/17 09:29 Dose: 81 mg Bisacodyl (Dulcolax) 5 mg PO DAILY PRN PRN Reason: Constipation Dextrose/Water (Dextrose 50% In Water) 50 ml IVPUSH ASDIRECTED PRN PRN Reason: Hypoglycemia Docusate Sodium (Colace) 100 mg PO BID PRN PRN Reason: Constipation Glipiz[facility] ([facility]) [facility] Last Admin: 01/06/17 09:29 Dose: 2.5 mg Hydralazine HCl (Apresoline) 20 mg IVPUSH Q4H PRN PRN Reason: Hypertension Hydromorphone HCl (Dilaudid) 0.25 mg IVPUSH Q2H PRN PRN Reason: Pain (severe 7-10) Promethazine HCl 12.5 mg/ (Sodium Chloride) 50.5 mls @ 100 mls/hr IV Q6H PRN PRN Reason: Nausea/Vomiting Sodium Chloride (Normal Saline) 1,000 mls [facility] Admin: 01/06/17 02:04 Dose: 125 mls/hr Insulin Aspart (Novolog) 0 unit SUBCUT QIDACANDBED [facility] PRN Reason: Protocol Last Admin: 01/06/17 12:03 Dose: 4 units Lorazepam (Ativan) 2 mg IVPUSH Q4H PRN PRN Reason: Seizures Lorazepam (Ativan) 1 mg IV Q6H PRN PRN Reason: Anxiety Magnesium Sulfate (Pharmacy To Dose - Magnesium Replacement) 0 dose .XX ASDIRECTED PRN PRN Reason: RX TO WATCH MAG LEVELS Metformin HCl (Glucophage) [facility] Last Admin: 01/06/17 09:29 Dose: 500 mg Metoprolol Tartrate (Lopressor) 5 mg IVPUSH Q4H PRN PRN Reason: Tachycardia Ondansetron HCl (Zofran) 4 mg IV Q6H PRN PRN Reason: Nausea/Vomiting Polyethylene Glycol (Miralax) 17 gm PO DAILY PRN PRN Reason: Constipation Potassium Chloride (Pharmacy To Dose - Potassium Replacement) 0 dose .XX ASDIRECTED PRN PRN Reason: RX TO WATCH K LEVELS Senna/Docusate Sodium (Senna Plus) 1 tab PO BID PRN PRN Reason: Constipation Temazepam (Restoril) 15 mg PO BEDTIME PRN PRN Reason: Sleep Last Admin: 01/06/17 02:03 Dose: 15 mg Discontinued Medications Sodium Chloride (Normal Saline) 1,000 mls @ 999 mls/hr IV ONETIME ONE Stop: 01/05/17 22:39 Last Admin: 01/05/17 21:51 Dose: 999 mls/hr Insulin Human Regular 100 unit (/ Sodium Chloride) 100 mls @ 0 mls/hr IV TITRATE DARINEL; 0.1 UNITS/KG/HR PRN Reason: Protocol Sodium Chloride (Normal Saline) 1,000 mls @ 999 mls/hr IV ONETIME ONE Stop: 01/06/17 00:32 Last Admin: 01/06/17 00:08 Dose: 999 mls/hr Magnesium Sulfate (Magnesium Sulfate 2 Gm In Water 50 Ml) 50 mls @ 50 mls/hr IV ONETIME ONE Stop: 01/06/17 02:59 Last Admin: 01/06/17 02:04 Dose: 50 mls/hr Insulin Human Regular (Humulin R) 10 unit SUBCUT ONETIME STA PRN Reason: Protocol Stop: 01/05/17 21:40 Last Admin: 01/05/17 21:53 Dose: 10 units Metformin HCl (Glucophage) 500 mg PO ONETIME ONE Stop: 01/06/17 01:35 Last Admin: 01/06/17 02:03 Dose: 500 mg - Exam General: Reports: Alert, Oriented, Cooperative, No Acute Distress, Mild Distress , Other (Obese) HEENT: Reports: Pupils Equal, Pupils Reactive, EOMI, Mucous Membr. Moist/[place] Neck: Reports: Supple, Trachea Midline, No JVD, No Thyromegaly Lungs: Reports: Clear to Auscultation, Normal Respiratory Effort Cardiovascular: Reports: Regular Rate, Regular Rhythm GI/Abdominal Exam: Normal Bowel Sounds, Soft, Non-Tender, No Organomegaly, No Distention, No Abnormal Bruit, No Mass, Pelvis Stable, Other (Obese) (Male) Exam: Rash (penile primarily around the neck below the penile head) Rectal (Males) Exam: Deferred Back Exam: Reports: Normal Inspection, Decreased Range of Motion Extremities: Normal Inspection, Normal Range of Motion, Non-Tender, No Pedal Edema, Normal Capillary Refill Skin: Reports: Warm, Dry, Intact Neurological: Reports: No New Focal Deficit Psy/Mental Status: Reports: Alert, Normal Affect, Normal Mood *Q Meaningful Use (DIS) - VTE *Q VTE Criteria *Q: - Stroke *Q Stroke Criteria *Q: - AMI *Q AMI Criteria *Q:
--- NOTE | 2017-01-06 15:57 | PCM.SN ---
- Free Text/Narrative Note: Patient had penile irritation. This happened while his he was at work. He was needing to go to the bath and with unclean (laced with chemical) hands he unknowingly touched his penile and from there he developed penile rash. He has been using OTC antibacterial cream. Patient was counseled on proper hygiene and to make sure his hands are clean before he touch any of his body parts. He was advised to let air in to his brief, avoid moist or change underwear routinely, apply OCT hydrocortisone cream if he experience itching and not scratch it. Again, I stressed the importance of proper hygiene and controlling his blood sugar.
== END 2017-01-06 17:30 | disposition home or self-care (01) ==
LOC: JD.ED 19:30 → JD.MS 01-06 00:03
PROVIDERS: ADMIT Internal Medicine; ATTEND Internal Medicine
DX: E11.65 Type 2 diabetes mellitus with hyperglycemia (principal); E78.5 Hyperlipidemia, unspecified; N48.89 Other specified disorders of penis; E66.9 Obesity, unspecified; Z88.0 Allergy status to penicillin; Z79.82 Long term (current) use of aspirin; Z79.84 Long term (current) use of oral hypoglycemic drugs; Z79.899 Other long term (current) drug therapy; Z98.890 Other specified postprocedural states; Z68.30 Body mass index [BMI] 30.0-30.9, adult
CPT/HCPCS: 36415; 71020; 80048; 80053; 80061; 81001; 82009; 82043; 82962; 83036; 83605; 83735; 84439; 84443; 84484; 85025; 96360; 96361; 96372; 99285; A9270; J1815; J1817; J7040; 96365; 99236; G0378; J3475